=== PATIENT | female | born 1995 | race Caucasian/White ===

== ENCOUNTER 2016-03-16 03:18 | Emergency (ER) | payer OTHER ==
[~2016-03-16] VITALS: Ht 162.5 cm; Wt 113.4 kg
[~2016-03-16 03:18] MED LIST: AMOXICILLIN500 MG PO; ANUSOL-HC25 MG RC; APRI 0.15 MG-0.1 TAB PO; AUGMENTIN 875875 MG PO; CARAFATE1 G1 PO; CEPHALEXIN500 M1 PO; CIPRO500 MG PO; CLARITIN10 MG PO; CORTISPORIN 1%7.5 ML OP; DEPO PROVER150 MG/M1 IM; DIFLUCAN150 MG PO; EPI EZ PEN1 MG/ML IM; EPI-PEN1 MG/ML MR; EPIPEN 2-PAK1 MG/ML MR; Flagyl500 M1 PO; GYNE LOTRIMIN VG; HEART BURN MED; HYDROCODONE BIT1 T11 PO; KEFLEX500 MG PO; MACROBID100 M1 PO; MACRODANTIN100 MG PO; MOTRIN400 MG PO; MOTRIN800 MG PO; Motrin,Rufen800 MG PO; NKHM; NUVARING1 ICR VG; PRENATAL1 TA7 PO; TYLENOL W/CODEI1 TA2 PO; ULTRAM50 MG PO; ZANTAC 150150 MG PO; ZOFRAN ODT4 MG SL; ZOLOFT100 MG PO; Zofran4 MG PO
[2016-03-16] MEDS ORDERED: AMOXICILLIN875 MG PO (04:21)
[2016-03-29] MEDS ORDERED: PROMETHAZINE25 M1 PO (09:05)
== END 2016-03-16 04:40 | disposition home or self-care (01) ==
LOC: ED 03:18
DX: J02.9 Acute pharyngitis, unspecified (principal); Z90.49 Acquired absence of other specified parts of digestive tract; Z88.1 Allergy status to other antibiotic agents; Z88.8 Allergy status to other drugs, medicaments and biological substances

== ENCOUNTER 2018-08-25 09:50 | Emergency (ER) | payer OTHER ==
[~2018-08-25] VITALS: Ht 162.5 cm; Wt 111.1 kg
[~2018-08-25 09:50] MED LIST changes: +AMOXICILLIN875 MG PO; +PROMETHAZINE25 M1 PO
[2018-08-25] MEDS ORDERED: PREDNISONE20 M1 PO (09:59)
== END 2018-08-25 10:06 | disposition home or self-care (01) ==
LOC: ED 09:50
DX: L25.9 Unspecified contact dermatitis, unspecified cause (principal); L55.0 Sunburn of first degree; Z88.1 Allergy status to other antibiotic agents; Z88.2 Allergy status to sulfonamides; Z90.49 Acquired absence of other specified parts of digestive tract

== ENCOUNTER 2019-01-03 05:08 | Emergency (ER) | payer OTHER ==
[~2019-01-03] VITALS: Ht 162.5 cm; Wt 113.4 kg
[~2019-01-03 05:08] MED LIST changes: +PREDNISONE20 M1 PO
[2019-01-03] MEDS ORDERED: ZOFRAN4 MG SL (07:05)
== END 2019-01-03 07:12 | disposition home or self-care (01) ==
LOC: ED 05:08
DX: R51 Headache (principal); Z88.8 Allergy status to other drugs, medicaments and biological substances; Z88.2 Allergy status to sulfonamides; Z79.899 Other long term (current) drug therapy; Z90.49 Acquired absence of other specified parts of digestive tract

== ENCOUNTER 2019-01-04 01:20 | Emergency (ER) | payer OTHER ==
[~2019-01-04] VITALS: Ht 162.5 cm; Wt 113.4 kg
[~2019-01-04 01:20] MED LIST changes: +ZOFRAN4 MG SL
[2019-01-04 02:02] LABS: BASO % 0.1 % (0.0-1.0); HEMATOCRIT 37.9 % (37.0-47.0); LYMPH # 1.2 10*3/uL (1.3-4.4); LYMPH % 9.2 % (27.0-41.0); MEAN CELL VOLUME 87.9 fl (81.0-99.0); MEAN CORPUSCULAR HGB 30.2 pg (27.0-31.0); MEAN CORPUSCULAR HGB CONC 34.3 g/dl (33.0-37.0); MEAN PLATELET VOLUME 11.3 fl (9.6-12.3); MONO # 0.7 10*3/uL (0.1-1.0); MONO % 4.9 % (3.0-9.0); NEUT # 11.6 10*3/uL (2.3-7.9); NEUT % 85.4 % (47.0-73.0); PLATELET COUNT AUTOMATED 187 10*3/uL (130-400); RED BLOOD COUNT 4.31 10*6/uL (4.10-5.10); WHITE BLOOD COUNT 13.5 10*3/uL (4.8-10.8)
[2019-01-04 02:18] LABS: ALBUMIN 3.3 gm/dl (3.1-4.5); ALKALINE PHOSPHATASE 92 U/L (45-117); BUN 13 mg/dl (7-24); CHLORIDE 110 mmol/L (98-107); CREATININE 0.74 mg/dL (0.55-1.02); POTASSIUM 3.7 mmol/L (3.5-5.1); SGOT/AST 12 IU/L (3-35); SGPT/ALT 23 U/L (12-78); SODIUM 139 mmol/L (136-145)
[2019-01-04 02:19] LABS: TOTAL PROTEIN 7.4 gm/dL (6.4-8.2)
== END 2019-01-04 04:45 | disposition home or self-care (01) ==
LOC: ED 01:20
PROVIDERS: Emergency Medicine
DX: R51 Headache (principal); R11.2 Nausea with vomiting, unspecified; H53.149 Visual discomfort, unspecified; Z88.8 Allergy status to other drugs, medicaments and biological substances; Z88.2 Allergy status to sulfonamides; Z79.899 Other long term (current) drug therapy; Z90.49 Acquired absence of other specified parts of digestive tract

== ENCOUNTER 2019-07-14 20:45 | Emergency (ER) | payer OTHER ==
[~2019-07-14] VITALS: Ht 160 cm; Wt 108.9 kg
[2019-07-14] MEDS ORDERED: HYDROXYZINE HCL25 MG PO (21:37)
== END 2019-07-14 21:47 | disposition home or self-care (01) ==
LOC: ED 20:45
DX: F41.9 Anxiety disorder, unspecified (principal); K21.9 Gastro-esophageal reflux disease without esophagitis; Z88.8 Allergy status to other drugs, medicaments and biological substances; Z88.2 Allergy status to sulfonamides; Z79.899 Other long term (current) drug therapy

== ENCOUNTER 2019-08-10 20:46 | Emergency (ER) | payer OTHER ==
[~2019-08-10] VITALS: Ht 162.5 cm; Wt 108.9 kg
[~2019-08-10 20:46] MED LIST changes: +HYDROXYZINE HCL25 MG PO
[2019-08-10 22:14] LABS: INTERNATIONAL NORM RATIO 3.5 (2.0-3.5)
== END 2019-08-10 23:43 | disposition home or self-care (01) ==
LOC: ED 20:46
PROVIDERS: Nurse Practitioner Family
DX: S61.216A Laceration without foreign body of right little finger without damage to nail, initial encounter (principal); K21.9 Gastro-esophageal reflux disease without esophagitis; Z88.2 Allergy status to sulfonamides; Z88.8 Allergy status to other drugs, medicaments and biological substances; W45.8XXA Other foreign body or object entering through skin, initial encounter; Y93.89 Activity, other specified; Y92.89 Other specified places as the place of occurrence of the external cause; Y99.8 Other external cause status

== ENCOUNTER 2020-11-28 17:38 | Emergency (ER) | payer OTHER ==
[~2020-11-28] VITALS: Ht 162.5 cm; Wt 108.9 kg
[2020-11-28] MEDS ORDERED: SERTRALINE HYDR50 MG PO (20:48)
== END 2020-11-28 22:30 | disposition home or self-care (01) ==
LOC: ED 17:38
DX: S96.912A Strain of unspecified muscle and tendon at ankle and foot level, left foot, initial encounter (principal); Z88.8 Allergy status to other drugs, medicaments and biological substances; Z79.899 Other long term (current) drug therapy; W18.39XA Other fall on same level, initial encounter; Y93.89 Activity, other specified; Y92.89 Other specified places as the place of occurrence of the external cause; Y99.8 Other external cause status

== ENCOUNTER 2021-04-18 17:35 | Emergency (ER) | payer OTHER ==
[~2021-04-18] VITALS: Ht 162.5 cm; Wt 108.9 kg
[~2021-04-18 17:35] MED LIST changes: +SERTRALINE HYDR50 MG PO
== END 2021-04-18 20:20 | disposition home or self-care (01) ==
LOC: ED 17:35
DX: S93.602A Unspecified sprain of left foot, initial encounter (principal); S90.32XA Contusion of left foot, initial encounter; Z88.2 Allergy status to sulfonamides; Z88.8 Allergy status to other drugs, medicaments and biological substances; Z79.899 Other long term (current) drug therapy; Z90.49 Acquired absence of other specified parts of digestive tract; X58.XXXA Exposure to other specified factors, initial encounter; Y93.89 Activity, other specified; Y92.89 Other specified places as the place of occurrence of the external cause; Y99.8 Other external cause status